=== PATIENT | male | born 1955 | race Caucasian/White ===

== ENCOUNTER 2019-07-01 12:04 | Emergency (ER) | payer SELFPAY ==
[~2019-07-01] VITALS: Ht 167.6 cm; Wt 58.1 kg
--- NOTE | 2019-07-01 12:21 | NUR ---
PT [id number] [id number] FRM CORRECTION C/O RUQ ABDOMINAL PAIN, CHILLS X TODAY. PLACED ON MONITOR AND PULSE OX.
--- NOTE | 2019-07-01 12:22 | NUR ---
C/O RU ABD PAIN.
[2019-07-01] MEDS ORDERED: ONDANSETRON HCL/PF 4 MG/2 ML VIAL IVP ONE (12:30)
[2019-07-01] MEDS ORDERED: IV NS 0.9% 1,000 ML BAG IV ONE (12:30)
[2019-07-01] MEDS ORDERED: ONDANSETRON HCL/PF 4 MG/2 ML VIAL ONE ×2 (12:30→12:34)
[2019-07-01] MEDS ORDERED: ACETAMINOPHEN ES 500 MG TABLET PO ONE (12:30)
[2019-07-01] MEDS ORDERED: ACETAMINOPHEN ES 500 MG TABLET ONE ×2 (12:31→12:34)
[2019-07-01 12:52] LABS: BASOPHILS % (AUTO) 0.7 % (0.0-2.0); LYMPHOCYTES # (AUTO) 0.7 /CMM (0.8-4.8); MONOCYTES # (AUTO) 0.8 /CMM (0.1-1.30); NEUTROPHILS # (AUTO) 4.5 /CMM (1.8-8.9); RED BLOOD CELL COUNT(AUTO) 3.62 MIL/uL (4.5-6.0); WHITE BLOOD COUNT (AUTO) 6.1 K/uL (4.3-11.0)
--- NOTE | 2019-07-01 12:53 | NUR ---
US AT BEDSIDE
[2019-07-01 12:55] LABS: HEMATOCRIT 34 % (39-51); HEMOGLOBIN 11.2 g/dL (13.5-17.5); LYMPHOCYTES % (AUTO) 11.8 % (20.0-44.0); MEAN CORPUSCULAR HGB CONC 33 g/dl (31.0-36.0); MEAN CORPUSCULAR VOLUME 93 fL (80-96); MONOCYTES % (AUTO) 13.6 % (2.0-12.0); NEUTROPHILS % (AUTO) 73.9 % (43.0-81.0); PLATELET COUNT (AUTO) 250 /CMM (150-450)
--- NOTE | 2019-07-01 12:59 | NUR ---
URINE SENT TO LAB
[2019-07-01 13:00] LABS: CALCIUM, SERUM 9.4 mg/dL (8.5-10.1); CARBON DIOXIDE 28 mmol/L (21-32); CHLORIDE 94 mmol/L (98-107); CREATININE 0.8 mg/dL (0.6-1.3); GLUCOSE 113 mg/dL (74-106); POTASSIUM 4.3 mmol/L (3.5-5.1); SODIUM SERUM 131 mmol/L (136-145); UREA NITROGEN, BLOOD 8 mg/dL (7-18)
[2019-07-01 13:02] LABS: APPEARANCE,URINE Clear (CLEAR); BILIRUBIN,URINE Negative (NEGATIVE); BLOOD, URINE Moderate Ery/uL (NEGATIVE); COLOR,URINE Yellow (YELLOW); KETONES,URINE 40 (NEGATIVE); LEUKOCYTE ESTERASE ,URINE Negative (NEGATIVE); NITRITE, URINE Negative (NEGATIVE); PROTEIN,URINE Trace mg/dl (NEGATIVE); UGLUCOSE Negative (NEGATIVE)
[2019-07-01 13:05] LABS: BACTERIA,URINE Rare /HPF (None Seen); SQUAMOUS EPITHELIAL CELL,UR None Seen /HPF (None Seen); WBC,URINE 0-2 /HPF (0-3)
[2019-07-01 13:06] LABS: ALANINE AMINOTRANSFERASE 19 U/L (12-78); ALBUMIN 3.5 g/dL (3.4-5.0); ALKALINE PHOSPHATASE 77 U/L (46-116); ASPARTATE AMINOTRANSFERASE 27 U/L (15-37); BILIRUBIN,DIRECT 0.2 mg/dL (0.0-0.2); BILIRUBIN,TOTAL 0.9 mg/dL (0.2-1.0); LIPASE 78 U/L (73-393); TOTAL PROTEIN, SERUM 8.3 g/dL (6.4-8.2)
[2019-07-01] MEDS ORDERED: IV NS 0.9% 250 ML IV ONE (13:21)
[2019-07-01] MEDS ORDERED: IOHEXOL-300 100 ML VIAL IV ONE (13:21)
--- NOTE | 2019-07-01 13:51 | NUR ---
PT BACK FROM CT
--- NOTE | 2019-07-01 16:41 | NUR ---
IV removed. Catheter intact and site benign. Pressure and 4x4 applied to site. No bleeding noted.
--- NOTE | 2019-07-01 16:45 | NUR ---
Patient discharged to home in stable condition. Written and verbal after care instructions given. Patient verbalizes understanding of instruction. Homeless waiver signed. VSS.
[2019-07-01 16:47] VITALS: BP 124/74
[2019-07-12] MEDS ORDERED: ACET325T53 PO (08:45)
[2019-07-12] MEDS ORDERED: GUAI10SY3 PO (08:45)
[2019-07-12] MEDS ORDERED: MAGN400T26 PO (08:45)
[2019-07-12] MEDS ORDERED: LEVO500T75 PO (08:45)
[2019-07-12] MEDS ORDERED: POTA20TA83 PO (08:45)
[2019-07-12] MEDS ORDERED: ENOX40DI SQ (08:45)
[2019-07-12] MEDS ORDERED: PANT40TA2 PO (08:45)
[2019-07-12] MEDS ORDERED: BENZ-13 PO (08:45)
== END 2019-07-01 16:48 | disposition home or self-care (01) ==
LOC: ER 12:07
DX: B34.9 Viral infection, unspecified (principal); Z59.0 Homelessness
CPT/HCPCS: 36415; 71045; 74177; 76705; 80048; 80076; 81001; 83605; 83690; 84484; 85025; 85730; 87040 ×2; 87804 ×2; 93005; 96374; 99284; J2405; J7030; J7050; Q9967; 81000-TC

== ENCOUNTER 2019-07-02 09:27 | Emergency (ER) | payer SELFPAY ==
[~2019-07-02] VITALS: Ht 167.6 cm; Wt 58.1 kg
--- NOTE | 2019-07-02 09:28 | NUR ---
PT BIBRA FROM THE STREETS TO ED BED 15. PASSERBY CALLED 911, PER REPORT PT ASKED TO BE TAKEN TO THE HOSPITAL. C/O BEING "COLD." PT WAS SEEN IN ED YESTERDAY C/O ABDOMINAL PAIN W/ LOW GRADE FEVER. WAS GIVEN A FULL WORK UP, MEDICALLY CLEARED AND DISCHARGE. PT GOWNED AND PLACED ON MONITOR. AFEBRILE MORTGAGE ORIGINATOR. AWAITING MD CLARKE.
--- NOTE | 2019-07-02 09:34 | NUR ---
DR BERNARD AT BEDSIDE FOR EVAL.
--- NOTE | 2019-07-02 15:00 | NUR ---
Social service consult requested by Dr. Carson for homelessness. Per MD notes, pt. is a 64-year-old male, brought in by paramedics. Patient was found passed out in the streets and was "cold". Positive has a history of alcoholism and intoxication. BAKER met with the pt. bedside. Pt. is alert and oriented x 4. Pt. is Bengali speaking. Renetta from ER admitting assisted with translation. Pt. was seen in the ED yesterday for alcohol intoxication and feeling "cold." Pt. appears dirty and disheveled and has a foul odor. Pt has been homeless for the past 3 years. Prior to being homeless, pt ws living with his family, however pt. stated," they kicked him out." Pt. is an alcoholic and appears to minimize his alcohol consumption. Pt. is familiar with the [facility] and [facility]. Pt. is interested in going to the [facility]. Pt. denies any suicidal and homicidal ideations and visual/auditory hallucinations at this time. Pt. has no source of income and lemus handles or goes to [facility] located at [address] in [place] for food/shower. Pt. states, he goes from hospital to hospital to receive services. SW encouraged pt. to get assistance from caseworkers at [facility] regarding housing services. BAKER encouraged pt. to stop drinking alcohol. BAKER provided pt. with active listening, emotional support and supportive counseling. BAKER provided pt. with the following resources: [facility] [id number] Winter Fdc Program list, [facility] located at [address] [facility] [place], [address] [place] ; [facility] [place], [address] ; [facility] Homeless Resource Directory which includes food stamps, transitional housing, showers and hot meals etc; Mental Health clinics such as [facility] ; [facility] ; Health clinics;[facility] and Alcohol treatment centers such as [facility], ; [facility] Substance Abuse Hotline and [facility] . Homeless Patient waiver form was placed in the chart for pt. to sign upon discharge. TAP card will be provided to the pt. at time of discharge. No other social service needs are requested at this time.
--- NOTE | 2019-07-02 15:30 | NUR ---
PT IS MEDICALLY CLEARED. AMBULATES W/ STEADY GAIT. PT WAS PROVIDED W/ HOMELESS CARE HOME REFFERAL AND TAP CARD FOR TRANPORTATION. VERBALIZES UNDERSTANDING ACI. DISCHARGE IN STABLE CONDITION.
[2019-07-02 15:32] VITALS: BP 108/81
[2019-07-12] MEDS ORDERED: BENZ-13 PO (08:45)
[2019-07-12] MEDS ORDERED: MAGN400T26 PO (08:45)
[2019-07-12] MEDS ORDERED: ACET325T53 PO (08:45)
[2019-07-12] MEDS ORDERED: LEVO500T75 PO (08:45)
[2019-07-12] MEDS ORDERED: PANT40TA2 PO (08:45)
[2019-07-12] MEDS ORDERED: GUAI10SY3 PO (08:45)
[2019-07-12] MEDS ORDERED: POTA20TA83 PO (08:45)
[2019-07-12] MEDS ORDERED: ENOX40DI SQ (08:45)
== END 2019-07-02 15:32 | disposition home or self-care (01) ==
LOC: ER 09:27
DX: F10.229 Alcohol dependence with intoxication, unspecified (principal); Y90.9 Presence of alcohol in blood, level not specified; Z59.0 Homelessness

== ENCOUNTER 2019-07-06 14:31 | Emergency (ER) | payer SELFPAY ==
[~2019-07-06] VITALS: Ht 167.6 cm; Wt 58.1 kg
--- NOTE | 2019-07-06 14:40 | NUR ---
[id number] C/O GENERALIZED WEAKNESS. PATIENT A/OX4, BREATHING EVEN AND UNLABORED, NO SOB NOTED. NEEDS ATTENDED. KEPT COMFORTABLE.
--- NOTE | 2019-07-06 15:59 | NUR ---
Patient given food and tap card. Patient given written and verbal discharge instructions. Patient verbalizes understanding of instructions. Patient is ambulatory with steady gait. Refuses offer of intermediate placement. Patient given list of available shelters in surrounding area.
[2019-07-06 16:01] VITALS: BP 136/70
[2019-07-12] MEDS ORDERED: BENZ-13 PO (08:45)
[2019-07-12] MEDS ORDERED: POTA20TA83 PO (08:45)
[2019-07-12] MEDS ORDERED: LEVO500T75 PO (08:45)
[2019-07-12] MEDS ORDERED: ACET325T53 PO (08:45)
[2019-07-12] MEDS ORDERED: ENOX40DI SQ (08:45)
[2019-07-12] MEDS ORDERED: GUAI10SY3 PO (08:45)
[2019-07-12] MEDS ORDERED: PANT40TA2 PO (08:45)
[2019-07-12] MEDS ORDERED: MAGN400T26 PO (08:45)
== END 2019-07-06 16:01 | disposition home or self-care (01) ==
LOC: ER 14:32
DX: R53.1 Weakness (principal)

== ENCOUNTER 2019-07-07 10:52 | Inpatient (IN) | payer SELFPAY ==
[~2019-07-07] VITALS: Ht 172.7 cm; Wt 65.8 kg
--- NOTE | 2019-07-07 11:01 | NUR ---
patient ODETTE, picked up from one of the private property, weak and can't walk per patient, on room air, breathing evenly and unlabored. connected to the monitor and pulse ox. kept comfortable, will continue to monitor accordingly.
[2019-07-07] MEDS ORDERED: ACETAMINOPHEN 325 MG TABLET PO ONE (11:30)
[2019-07-07] MEDS ORDERED: ACETAMINOPHEN ES 500 MG TABLET ONE (11:43)
[2019-07-07 11:54] LABS: BASOPHILS % (AUTO) 0.1 % (0.0-2.0); EOSINOPHILS % (AUTO) 0.1 % (0.0-6.0); HEMATOCRIT 36 % (39-51); HEMOGLOBIN 11.8 g/dL (13.5-17.5); LYMPHOCYTES # (AUTO) 0.2 /CMM (0.8-4.8); LYMPHOCYTES % (AUTO) 2.8 % (20.0-44.0); MEAN CORPUSCULAR HGB CONC 33 g/dl (31.0-36.0); MEAN CORPUSCULAR VOLUME 93 fL (80-96); MONOCYTES # (AUTO) 0.1 /CMM (0.1-1.30); MONOCYTES % (AUTO) 0.9 % (2.0-12.0); NEUTROPHILS # (AUTO) 5.6 /CMM (1.8-8.9); NEUTROPHILS % (AUTO) 96.1 % (43.0-81.0); PLATELET COUNT (AUTO) 191 /CMM (150-450); RED BLOOD CELL COUNT(AUTO) 3.86 MIL/uL (4.5-6.0); WHITE BLOOD COUNT (AUTO) 5.9 K/uL (4.3-11.0)
[2019-07-07] MEDS ORDERED: IV NS 0.9% 1,000 ML BAG IV ONE (12:00)
[2019-07-07 12:01] LABS: CREATININE 1.4 mg/dL (0.6-1.3)
[2019-07-07 12:02] LABS: POTASSIUM 2.7 mmol/L (3.5-5.1)
[2019-07-07 12:27] LABS: MAGNESIUM 1.3 mg/dL (1.8-2.4)
[2019-07-07] MEDS: POTASSIUM CL. PREMIX PERIPHER. 50 ML IV SCH ×2 (12:30→13:30)
[2019-07-07] MEDS ORDERED: POTASSIUM CHLORIDE 20 MEQ TAB.PRT.SR PO ONE ×2 (12:30→12:38)
[2019-07-07] MEDS ORDERED: POTASSIUM CL. PREMIX PERIPHER. 50 ML ONE ×2 (12:38→13:31)
[2019-07-07 13:49] LABS: APPEARANCE,URINE Slightly Cloudy (CLEAR); BILIRUBIN,URINE SMALL (NEGATIVE); BLOOD, URINE Moderate Ery/uL (NEGATIVE); COLOR,URINE Dark (YELLOW); KETONES,URINE 15 (NEGATIVE); LEUKOCYTE ESTERASE ,URINE Negative (NEGATIVE); NITRITE, URINE Negative (NEGATIVE); PROTEIN,URINE 100 mg/dl (NEGATIVE); UGLUCOSE Negative (NEGATIVE)
[2019-07-07 13:58] LABS: BACTERIA,URINE Rare /HPF (None Seen); SQUAMOUS EPITHELIAL CELL,UR Few /HPF (None Seen); URINE AMORPHOUS URATE Few /HPF (None Seen); WBC,URINE 0-2 /HPF (0-3)
[2019-07-07] MEDS ORDERED: Magnesium 1 GM/2 ML VIAL IV ONE (14:30)
[2019-07-07] MEDS ORDERED: Magnesium 1GM/D5W 100ML PREMIX 100 ML IV ONE (14:35)
--- NOTE | 2019-07-07 14:47 | NUR ---
CALLED FOR BED
--- NOTE | 2019-07-07 16:18 | NUR ---
[facility]
--- NOTE | 2019-07-07 17:45 | NUR ---
wheeled patient via gurney accompanied by RN and emt in no distress, RN at bedside to assume care.
--- NOTE | 2019-07-07 17:46 | NUR ---
LEAD ANDROID DEVELOPERSTONEWORKER NOTES Received Patient via gurney. A/O x 2-3, speech garbled. Patient in stable condition. Breathing even and unlabored on room air with no respiratory distress. Denies pain. No signs and symptoms of pain. Skin assessment pictures taken and placed in chart. 18g PIV on RAC clean, intact, patent and flushing well. Telemonitor in place and patent reading occasional PVCs with HR-93. Safety precautions in place. Bed locked and set to lowest position with side rails x 2 up. All needs rendered at this time. Call light within reach. Will continue to monitor.
[2019-07-07] MEDS ORDERED: Z GUARD REMEDY 2 OZ OINT TP PRN (18:00)
[2019-07-07] MEDS ORDERED: MAG HYDROX/AL HYDROX/SIMETH 30 ML UDC PO PRN (18:00)
[2019-07-07] MEDS ORDERED: ONDANSETRON HCL/PF 4 MG/2 ML VIAL IVP PRN (18:00)
[2019-07-07] MEDS ORDERED: MAGNESIUM HYDROXIDE 30 ML UDC PO PRN (18:00)
--- NOTE | 2019-07-07 19:20 | NUR ---
CHANNELING MACHINE RUNNER CLOSING NOTES Patient awake and watching TV in bed. A/O x 2-3, speech garbled. Patient in stable condition. Breathing even and unlabored on room air with no respiratory distress. Denies pain. No signs and symptoms of pain. 18g PIV on RAC clean, intact, patent and flushing well. Telemonitor in place and patent reading occasional PVCs with HR-93. Safety precautions in place. Bed locked and set to lowest position with side rails x 2 up. All needs rendered at this time. Call light within reach. Will endorse plan of care to oncoming shift.
--- NOTE | 2019-07-07 19:54 | NUR ---
TELE/RN RECEIVED PATIENT IN BED APPEAR SLEEPING, APPEAR COMFORTABLE, NO SIGNS OF DISTRESS NOTED, BREATHING EVEN AND UNLABORED, CALL LIGHT IN REACH. FALL PRECAUTION. WILL MONITOR.
[2019-07-07 20:00] VITALS: BP 93/53
[2019-07-07] MEDS: IV NS 0.9% 1,000 ML IV PRN (20:04)
[2019-07-07] MEDS: ENOXAPARIN SODIUM 40 MG/0.4 ML DISP.SYRIN SQ SCH (22:05)
[2019-07-08] VITALS: BP 96/50
--- NOTE | 2019-07-08 05:02 | NUR ---
MS/RN TEMP 100.0 CALLED [facility], SPOKE TO NETTA MITCHELL NP, NO ORDER WAS RECEIVED. INFORMED ALSO EVELIA CHADWICK THAT THE PATIENT IS COUGHING, PER NETTA, HE WILL REVIEW THE CHART.
[2019-07-08] MEDS: ACETAMINOPHEN 325 MG TABLET PO PRN ×2 (05:08→20:32)
--- NOTE | 2019-07-08 06:09 | NUR ---
MS/RN AWAKE, COMFORTABLE, NO C/O PAIN, NO DISTRESS NOTED, ALL NEEDS ATTENDED AT THIS TIME, WILL CONTINUE TO MONITOR.
[2019-07-08 07:38] LABS: BASOPHILS % (AUTO) 0.3 % (0.0-2.0); EOSINOPHILS % (AUTO) 0.2 % (0.0-6.0); HEMATOCRIT 29 % (39-51); HEMOGLOBIN 9.7 g/dL (13.5-17.5); LYMPHOCYTES # (AUTO) 0.3 /CMM (0.8-4.8); MEAN CORPUSCULAR HGB CONC 33 g/dl (31.0-36.0); MEAN CORPUSCULAR VOLUME 92 fL (80-96); MONOCYTES # (AUTO) 0.3 /CMM (0.1-1.30); MONOCYTES % (AUTO) 4.4 % (2.0-12.0); NEUTROPHILS # (AUTO) 5.6 /CMM (1.8-8.9); NEUTROPHILS % (AUTO) 90.1 % (43.0-81.0); PLATELET COUNT (AUTO) 161 /CMM (150-450); RED BLOOD CELL COUNT(AUTO) 3.18 MIL/uL (4.5-6.0); WHITE BLOOD COUNT (AUTO) 6.2 K/uL (4.3-11.0)
[2019-07-08 08:00] VITALS: BP 94/51
--- NOTE | 2019-07-08 08:00 | NUR ---
PMP OPENING NOTES Received Patient asleep and resting in bed. A/O x 3-4, Kyrgyz speaking. Patient in stable condition. Breathing even and unlabored on room air with no respiratory distress. Denies pain. No signs and symptoms of pain. 18g PIV on RAC clean, intact, patent and flushing well. Telemonitor in place and patent reading occasional PVCs with HR-93. Safety precautions in place. Bed locked and set to lowest position with side rails x 2 up. All needs rendered at this time. Call light within reach. Will continue to monitor.
[2019-07-08 08:09] LABS: CALCIUM, SERUM 7.8 mg/dL (8.5-10.1); CARBON DIOXIDE 28 mmol/L (21-32); CHLORIDE 97 mmol/L (98-107); CREATININE 0.8 mg/dL (0.6-1.3); GLUCOSE 110 mg/dL (74-106); MAGNESIUM 1.5 mg/dL (1.8-2.4); PHOSPHORUS 1.5 mg/dL (2.5-4.9); SODIUM SERUM 135 mmol/L (136-145); UREA NITROGEN, BLOOD 20 mg/dL (7-18)
[2019-07-08 08:15] LABS: CHOLESTEROL 52 mg/dL (<200); LDL 21 mg/dL (0-99); THYROID STIMULATING HORMONE 0.542 uIU/mL (0.358-3.74); TRIGLYCERIDES 119 mg/dL (30-150)
[2019-07-08 08:17] LABS: HDL CHOLESTEROL < 10 mg/dL (40-60); POTASSIUM 2.6 mmol/L (3.5-5.1)
[2019-07-08] MEDS ORDERED: NEUTRA PHOS 1 POWD.PACKET PO ONE ×2 (09:00→11:30)
[2019-07-08] MEDS: POTASSIUM CL. PREMIX PERIPHER. 50 ML IV SCH ×4 (11:20→15:17)
[2019-07-08] MEDS: IV NS 0.9% 1,000 ML IV PRN (11:20)
[2019-07-08] MEDS: POTASSIUM CHLORIDE 20 MEQ TAB.PRT.SR PO SCH (11:21)
[2019-07-08] MEDS: PANTOPRAZOLE 40 MG TABLET.DR PO SCH (11:21)
--- NOTE | 2019-07-08 14:58 | NUR ---
Social service consult requested by EVELIA Rodriguez for homelessness. Upon chart review and ED notes, pt. is a 64 year old Malagasy speaking homeless male with no significant past history who presented by rescue ambulance from the streets for generalized weakness x 1 day. Patient stated he is unable to walk. He states that every time he walks, he falls. He states he fell forward onto his knees and subsequently fell to the right side. CYCLE TOURING GUIDE met with the pt bedside with community health advocate Candy to assist with Malagasy translation. Pt. is alert and oriented x 2 and is a poor historian. Pt. is unable to provide meaningful information at this time and appears to be weak. CYCLE TOURING GUIDE to follow up with pt. once he is able to provide meaningful information.
[2019-07-08] MEDS: LEVOFLOXACIN 500 MG /D5W 100ML 500 MG in PREMIX 1 EA IV SCH (15:17)
[2019-07-08 16:00] VITALS: BP 98/63
--- NOTE | 2019-07-08 18:10 | NUR ---
MS RN NOTES Notified Jennifer CABLE CUTTER AND SWAGER of Charge Nurse recommendation for breathing treatments. Per CABLE CUTTER AND SWAGER, may order "breathing tx prn q4hrs while awake". Order noted and carried out. Patient in stable condition. Will continue to monitor.
--- NOTE | 2019-07-08 19:05 | NUR ---
MS RN CLOSING NOTES Patient asleep and resting in bed. A/O x 3-4, Turkish speaking. Patient in stable condition. Breathing even and unlabored on room air with no respiratory distress. Noted Patient coughing. Will intervene as ordered. Denies pain. No signs and symptoms of pain. 18g PIV on RAC clean, intact, patent and flushing well with NS infusing at 75ml/hr. Bed locked and set to lowest position with side rails x 2 up. All needs rendered at this time. Call light within reach. Will endorse plan of care to oncoming shift.
--- NOTE | 2019-07-08 19:50 | NUR ---
MS RN OPENING NOTES PATIENT RESTING IN BED COMFORTABLY; A/O X 3; NO S/S OF ACUTE RESPIRATORY DISTRESS NOTED; PATIENT HAS BLE DISCOLORATION AND R FOOT IS SCALY/DRY; RAC #18 RUNNING NS @ 75ML/HR; FLUSHING WELL; NO S/S OF REDNESS OR INFILTRATION; BED LOCKED IN LOW POSITION; SAFETY PRECAUTIONS IN PLACE; BILATERAL UPPER SIDE RAILS UP X2; CALL LIGHT WITHIN EASY REACH; WILL CONTINUE TO MONITOR.
[2019-07-08 20:00] VITALS: BP 120/59
[2019-07-08] MEDS ORDERED: IPRATROPIUM NEB FS 0.5 MG/2.5 ML AMPUL.NEB NEB PRN (20:00)
[2019-07-08] MEDS ORDERED: ALBUTEROL FS 2.5 MG/0.5 ML VIAL.NEB NEB PRN (20:00)
[2019-07-08] MEDS: MAGNESIUM OXIDE 400 MG TABLET PO SCH (21:42)
[2019-07-08] MEDS: ENOXAPARIN SODIUM 40 MG/0.4 ML DISP.SYRIN SQ SCH (21:43)
[2019-07-09] MEDS: IV NS 0.9% 1,000 ML IV PRN (05:16)
--- NOTE | 2019-07-09 06:45 | NUR ---
MS RN CLOSING NOTES PATIENT RESTING COMFORTABLY IN BED; A/O X2, BREATHING EVEN AND UNLABORED; PATIENT HAS COUGH BUT NO SPUTUM NOTED; NO S/S OF ACUTE RESPIRATORY DISTRESS NOTED; BLE DISCOLORATION AND R FOOT SCALY/DRY; RAC #18 RUNNING NS @ 75ML/HR, NO S/S OF INFILTRATION OR REDNESS NOTED; IV SITE INTACT AND PATENT; FLUSHING WELL; BED LOCKED IN LOW POSITION, SAFETY PRECAUTIONS IN PLACE; SIDE RAILS UP X2; CALL LIGHT WITHIN EASY REACH; WILL ENDORSE CONTINUITY OF CARE TO ONCOMING NURSE.
[2019-07-09 07:14] LABS: CALCIUM, SERUM 7.6 mg/dL (8.5-10.1); CREATININE 0.7 mg/dL (0.6-1.3); POTASSIUM 2.9 mmol/L (3.5-5.1)
[2019-07-09 07:21] LABS: HEMATOCRIT 30 % (39-51); HEMOGLOBIN 9.9 g/dL (13.5-17.5); LYMPHOCYTES # (AUTO) 0.7 /CMM (0.8-4.8); LYMPHOCYTES % (AUTO) 10.2 % (20.0-44.0); MEAN CORPUSCULAR HGB CONC 33 g/dl (31.0-36.0); MEAN CORPUSCULAR VOLUME 93 fL (80-96); MONOCYTES # (AUTO) 0.5 /CMM (0.1-1.30); MONOCYTES % (AUTO) 6.9 % (2.0-12.0); NEUTROPHILS # (AUTO) 5.8 /CMM (1.8-8.9); NEUTROPHILS % (AUTO) 82.9 % (43.0-81.0); PLATELET COUNT (AUTO) 174 /CMM (150-450); RED BLOOD CELL COUNT(AUTO) 3.26 MIL/uL (4.5-6.0)
[2019-07-09 08:10] LABS: MAGNESIUM 1.2 mg/dL (1.8-2.4)
[2019-07-09 08:44] VITALS: BP 109/69
[2019-07-09] MEDS: POTASSIUM CHLORIDE 20 MEQ TAB.PRT.SR PO SCH (09:09)
[2019-07-09] MEDS: LEVOFLOXACIN 500 MG /D5W 100ML 500 MG in PREMIX 1 EA IV SCH (09:10)
[2019-07-09] MEDS: PANTOPRAZOLE 40 MG TABLET.DR PO SCH (09:11)
--- NOTE | 2019-07-09 10:20 | NUR ---
GPS/R Roxanne Rodriguez NP made aware of pt's critical values. she will put the orders fro mag. replacements
[2019-07-09] MEDS: Magnesium 1GM/D5W 100ML PREMIX 100 ML IV SCH ×4 (11:55→15:56)
[2019-07-09] MEDS: POTASSIUM CL. PREMIX PERIPHER. 50 ML IV SCH ×4 (11:58→18:52)
[2019-07-09 15:56] VITALS: BP 96/56
[2019-07-09 17:34] LABS: MAGNESIUM 1.8 mg/dL (1.8-2.4)
--- NOTE | 2019-07-09 19:35 | NUR ---
MS RN OPENING NOTES PATIENT RECEIVED PATIENT RESTING IN BED COMFORTABLY; A/O X2; BREATHING EVEN AND UNLABORED; PATIENT COUGHING BUT NO SPUTUM NOTED; PATIENT ON 2L NC AND TOLERATING WELL; NO S/S OF ACUTE RESPIRATORY DISTRESS NOTED; BLE DISCOLORATION NOTED; R FOOT SCALY/DRY; L FA #20 INTACT AND PATENT RUNNING NS @ 75ML/HR; FLUSHING WELL; NO S/S OF INFILTRATION; BED LOCKED IN LOW POSITION, SIDE RAILS UP X2; SAFETY PRECAUTIONS IN PLACE; CALL LIGHT WITHIN EASY REACH, WILL CONTINUE TO MONITOR.
--- NOTE | 2019-07-09 19:45 | NUR ---
RN NOTES LAB CALLED AND REPORTED PT'S POTASSIUM LEVEL IS 2.7- INFORMED LAB THAT POTASSIUM IV STILL RUNNING AND WE'LL PUT ANOTHER ORDER WE FINISHED THE POTASSIUM
[2019-07-09 20:00] VITALS: BP 97/54
[2019-07-09 20:41] LABS: POTASSIUM 2.7 mmol/L (3.5-5.1)
[2019-07-09] MEDS: MAGNESIUM OXIDE 400 MG TABLET PO SCH (21:15)
[2019-07-09] MEDS: ENOXAPARIN SODIUM 40 MG/0.4 ML DISP.SYRIN SQ SCH (21:15)
--- NOTE | 2019-07-09 23:35 | NUR ---
MS RN NOTES PATIENT POTASSIUM REDRAW: 3.0; MD NOTIFIED; SPOKE WITH DR. MITCHELL REGARDING LABS; 10 MEQ/50ML X2 ORDERED; AWAITING ROUTINE AM LABS FOR RESULTS; WILL CONTINUE TO MONITOR.
[2019-07-10] MEDS ORDERED: POTASSIUM CHLORIDE 10 MEQ/50 ML PREMIXED IVPB FOR PERIPHERAL LINE IV ONE
[2019-07-10] MEDS: IV NS 0.9% 1,000 ML IV PRN ×2 (00:26→23:37)
--- NOTE | 2019-07-10 06:46 | NUR ---
MS RN CLOSING NOTES PATIENT IN BED RESTING COMFORTABLY; PATIENT ON 2L NC; TOLERATING WELL, BREATHING EVEN AND UNLABORED; NO S/S OF ACUTE RESPIRATORY DISTRESS NOTED; BLE DISCOLORATION AND R FOOT SCALY/DRY; RA #20 SL, INTACT AND PATENT; FLUSHING WELL; L FA #20 RUNNING NS @ 100 ML/HR; FLUSHING WELL, NO S/S OF REDNESS OR INFILTRATION; BED LOCKED IN LOW POSITION; SAFETY PRECAUTIONS IN PLACE, SIDE RAILS X2; CALL LIGHT WITHIN EASY REACH; ALL NEEDS RENDERED; WILL ENDORSE CONTINUITY OF CARE TO ONCOMING NURSE.
[2019-07-10 07:01] LABS: BASOPHILS % (AUTO) 0.1 % (0.0-2.0); EOSINOPHILS % (AUTO) 0.3 % (0.0-6.0); HEMATOCRIT 28 % (39-51); HEMOGLOBIN 9.3 g/dL (13.5-17.5); LYMPHOCYTES # (AUTO) 0.8 /CMM (0.8-4.8); LYMPHOCYTES % (AUTO) 10.3 % (20.0-44.0); MEAN CORPUSCULAR HGB CONC 33 g/dl (31.0-36.0); MEAN CORPUSCULAR VOLUME 91 fL (80-96); MONOCYTES # (AUTO) 0.4 /CMM (0.1-1.30); MONOCYTES % (AUTO) 5.6 % (2.0-12.0); NEUTROPHILS # (AUTO) 6.3 /CMM (1.8-8.9); NEUTROPHILS % (AUTO) 83.7 % (43.0-81.0); PLATELET COUNT (AUTO) 176 /CMM (150-450); RED BLOOD CELL COUNT(AUTO) 3.04 MIL/uL (4.5-6.0); WHITE BLOOD COUNT (AUTO) 7.5 K/uL (4.3-11.0)
[2019-07-10 07:15] LABS: CALCIUM, SERUM 7.1 mg/dL (8.5-10.1); CREATININE 0.6 mg/dL (0.6-1.3); MAGNESIUM 1.3 mg/dL (1.8-2.4); PHOSPHORUS 2.5 mg/dL (2.5-4.9); POTASSIUM 2.9 mmol/L (3.5-5.1)
--- NOTE | 2019-07-10 08:00 | NUR ---
MS RN AM NOTES PATIENT IN BED RESTING COMFORTABLY; PATIENT ON 2L NC; TOLERATING WELL, BREATHING EVEN AND UNLABORED; NO S/S OF ACUTE RESPIRATORY DISTRESS NOTED; BLE DISCOLORATION AND R FOOT SCALY/DRY; RA #20 SL, INTACT AND PATENT; FLUSHING WELL; L FA #20 RUNNING NS @ 100 ML/HR; FLUSHING WELL, NO S/S OF REDNESS OR INFILTRATION; BED LOCKED IN LOW POSITION; SAFETY PRECAUTIONS IN PLACE, SIDE RAILS X2; CALL LIGHT WITHIN EASY REACH;
[2019-07-10 09:59] VITALS: BP 114/62
[2019-07-10] MEDS: PANTOPRAZOLE 40 MG TABLET.DR PO SCH (10:12)
[2019-07-10] MEDS: POTASSIUM CHLORIDE 20 MEQ TAB.PRT.SR PO SCH (10:12)
[2019-07-10] MEDS: LEVOFLOXACIN 500 MG /D5W 100ML 500 MG in PREMIX 1 EA IV SCH (10:13)
[2019-07-10] MEDS: BENZONATATE 100 MG CAPSULE PO PRN (10:50)
[2019-07-10] MEDS ORDERED: GUAIFENESIN/CODEINE 10 ML UDC PO PRN (11:00)
[2019-07-10 16:25] VITALS: BP 107/57
--- NOTE | 2019-07-10 19:30 | NUR ---
MS RN OPENING NOTES PATIENT ASLEEP UPON ARRIVAL. A/O X2, PORTUGUESE SPEAKING. ON 2L NC. NO S/S OF ACUTE RESPIRATORY DISTRESS AND NO COMPLAINTS OF PAIN AT THIS TIME. IV PRESENT ON LEFT FOREARM, SIZE 20 WITH NS RUNNING AT 100 CC/HR. BED LOCKED, ALARM ON, SIDE RAILS X2, CALL LIGHT WITHIN REACH. WILL CONTINUE TO MONITOR.
--- NOTE | 2019-07-10 19:30 | NUR ---
RESTING IN BED DENYING ANY PAIN OR DISTRESS.WITH OCCASIONAL DRY COUGH.ENCOURAGED INCREASE FLUIDS.CALL LIGHT PLACED WITHIN REACH.
[2019-07-10 20:00] VITALS: BP 102/58
[2019-07-10 20:29] VITALS: BP 132/86
[2019-07-10] MEDS: MAGNESIUM OXIDE 400 MG TABLET PO SCH (21:17)
[2019-07-10] MEDS: ENOXAPARIN SODIUM 40 MG/0.4 ML DISP.SYRIN SQ SCH (21:18)
--- NOTE | 2019-07-11 06:59 | NUR ---
MS RN CLOSING NOTES PATIENT SLEEPING IN BED. A/OX2. ON 2L NC. NO S/S OF ACUTE RESPIRATORY DISTRESS AND NO COMPLAINTS OF PAIN AT THIS TIME. IV PRESENT ON LEFT FOREARM, SIZE 20, WITH NS RUNNING AT 100CC/HR. IV ON RIGHT FOREARM, SIZE 20, HEP LOCKED. BED LOCKED, ALARM ON, SIDE RAILS X2, CALL LIGHT WITHIN REACH. WILL ENDORSE TO DAY SHIFT NURSE TO FOLLOW PLAN OF CARE.
[2019-07-11 08:00] VITALS: BP 99/59
[2019-07-11 08:53] LABS: BASOPHILS % (AUTO) 0.1 % (0.0-2.0); EOSINOPHILS % (AUTO) 0.2 % (0.0-6.0); HEMATOCRIT 26 % (39-51); HEMOGLOBIN 8.9 g/dL (13.5-17.5); LYMPHOCYTES # (AUTO) 1.2 /CMM (0.8-4.8); LYMPHOCYTES % (AUTO) 14.9 % (20.0-44.0); MEAN CORPUSCULAR HGB CONC 34 g/dl (31.0-36.0); MEAN CORPUSCULAR VOLUME 92 fL (80-96); MONOCYTES # (AUTO) 0.7 /CMM (0.1-1.30); MONOCYTES % (AUTO) 8.3 % (2.0-12.0); NEUTROPHILS # (AUTO) 6.3 /CMM (1.8-8.9); NEUTROPHILS % (AUTO) 76.5 % (43.0-81.0); PLATELET COUNT (AUTO) 215 /CMM (150-450); RED BLOOD CELL COUNT(AUTO) 2.88 MIL/uL (4.5-6.0); WHITE BLOOD COUNT (AUTO) 8.2 K/uL (4.3-11.0)
[2019-07-11] MEDS: POTASSIUM CHLORIDE 20 MEQ TAB.PRT.SR PO SCH (09:07)
[2019-07-11] MEDS: PANTOPRAZOLE 40 MG TABLET.DR PO SCH (09:07)
[2019-07-11 09:18] LABS: CALCIUM, SERUM 7.1 mg/dL (8.5-10.1); CREATININE 0.6 mg/dL (0.6-1.3); PHOSPHORUS 2.6 mg/dL (2.5-4.9); POTASSIUM 3.2 mmol/L (3.5-5.1)
--- NOTE | 2019-07-11 09:20 | NUR ---
NOTIFIED MARÍA OF PT'S LOW K+ 3.2 MG 1.0 WITH NEW ORDERS CARRIED OUT
[2019-07-11] MEDS: BENZONATATE 100 MG CAPSULE PO PRN (09:32)
[2019-07-11] MEDS ORDERED: POTASSIUM CHLORIDE 20 MEQ TAB.PRT.SR PO ONE (10:00)
[2019-07-11] MEDS ORDERED: LEVOFLOXACIN (500MG) 500 MG TABLET PO SCH (10:00)
[2019-07-11] MEDS ORDERED: GUAIFENESIN/CODEINE 10 ML UDC PO PRN (10:00)
[2019-07-11] MEDS: Magnesium 1GM/D5W 100ML PREMIX 100 ML IV SCH ×4 (10:03→14:23)
--- NOTE | 2019-07-11 10:04 | NUR ---
IN ADDITION OF THE PT'S ROUTINE KDUR 80 MEQ THE DOCTOR ORDERED KDUR 40 MEQ PO FOR PT'S LOW K LEVEL
[2019-07-11] MEDS: IV NS 0.9% 1,000 ML IV PRN (10:08)
[2019-07-11 16:00] VITALS: BP 97/50
[2019-07-11 20:00] VITALS: BP 111/55
[2019-07-11] MEDS: ENOXAPARIN SODIUM 40 MG/0.4 ML DISP.SYRIN SQ SCH (21:36)
[2019-07-11] MEDS: MAGNESIUM OXIDE 400 MG TABLET PO SCH (21:36)
[2019-07-11] MEDS ORDERED: MAGNESIUM OXIDE 400 MG TABLET PO ONE (22:00)
[2019-07-12] MEDS: IV NS 0.9% 1,000 ML IV PRN ×2 (00:59→12:39)
--- NOTE | 2019-07-12 06:34 | NUR ---
MS RN NOTES AWAKE & RESPONSIVE. NOT IN ANY DISTRESS. NO SOB NOTED. DENIES ANY PAIN OR DISCOMFORT AT THIS TIME. WITH IVF INFUSING WELL. AM CARE DONE. MONITORED ACCORDINGLY. CALL LIGHT WITHIN REACH. BED IN LOWEST POSITION. SR UP X 2 WITH BED ALARM ON FOR SAFETY. WILL ENDORSE TO NEXT SHIFT.
--- NOTE | 2019-07-12 07:50 | NUR ---
MS/RN OPENING NOTES RECEIVED PATIENT AWAKE & RESPONSIVE LYING IN BED COMFORTABLY. NOT IN ANY DISTRESS. NO SOB NOTED. DENIES ANY PAIN OR DISCOMFORT AT THIS TIME. WITH IVF INFUSING WELL. MONITORED ACCORDINGLY. CALL LIGHT WITHIN REACH. BED IN LOWEST POSITION. SR UP X 2 WITH BED ALARM ON FOR SAFETY. WILL CONTINUE TO MONITOR.
[2019-07-12 08:00] VITALS: BP 97/50
[2019-07-12 08:14] LABS: BASOPHILS % (AUTO) 0.1 % (0.0-2.0); EOSINOPHILS % (AUTO) 0.7 % (0.0-6.0); HEMATOCRIT 25 % (39-51); HEMOGLOBIN 8.5 g/dL (13.5-17.5); LYMPHOCYTES % (AUTO) 13.6 % (20.0-44.0); MEAN CORPUSCULAR HGB CONC 34 g/dl (31.0-36.0); MEAN CORPUSCULAR VOLUME 92 fL (80-96); MONOCYTES # (AUTO) 0.6 /CMM (0.1-1.30); MONOCYTES % (AUTO) 8.3 % (2.0-12.0); NEUTROPHILS # (AUTO) 5.8 /CMM (1.8-8.9); NEUTROPHILS % (AUTO) 77.3 % (43.0-81.0); PLATELET COUNT (AUTO) 237 /CMM (150-450); WHITE BLOOD COUNT (AUTO) 7.5 K/uL (4.3-11.0)
[2019-07-12 08:30] LABS: CALCIUM, SERUM 7.3 mg/dL (8.5-10.1); CREATININE 0.6 mg/dL (0.6-1.3); MAGNESIUM 1.3 mg/dL (1.8-2.4); PHOSPHORUS 2.6 mg/dL (2.5-4.9); POTASSIUM 4.1 mmol/L (3.5-5.1)
[2019-07-12] MEDS: PANTOPRAZOLE 40 MG TABLET.DR PO SCH (08:43)
[2019-07-12] MEDS: POTASSIUM CHLORIDE 20 MEQ TAB.PRT.SR PO SCH (08:43)
[2019-07-12] MEDS ORDERED: LEVO500T75 PO (08:45)
[2019-07-12] MEDS ORDERED: PANT40TA2 PO (08:45)
[2019-07-12] MEDS ORDERED: ENOX40DI SQ (08:45)
[2019-07-12] MEDS ORDERED: GUAI10SY3 PO (08:45)
[2019-07-12] MEDS ORDERED: BENZ-13 PO (08:45)
[2019-07-12] MEDS ORDERED: ACET325T53 PO (08:45)
[2019-07-12] MEDS ORDERED: MAGN400T26 PO (08:45)
[2019-07-12] MEDS ORDERED: POTA20TA83 PO (08:45)
[2019-07-12] MEDS ORDERED: LEVOFLOXACIN 500 MG /D5W 100ML 500 MG in PREMIX 1 EA IV SCH (09:00)
[2019-07-12] MEDS ORDERED: MAGNESIUM OXIDE 400 MG TABLET PO ONE (11:30)
--- NOTE | 2019-07-12 18:46 | NUR ---
MS/RN CLOSING NOTES PATIENT IS ALERT AND ORIENTED X3. PATIENT DENIES PAIN AT THIS TIME. NO RESPIRATORY DISTRESS NOTED AT THIS TIME. SEEN AND EXAMINED BY MD WITH ORDERS NOTED AND CARRIED OUT. ALL DUE PRESCRIBED MEDS WAS GIVEN. NS 1L AT 100ML/HR INFUSING WELL. IV LINE AT THE LEFT UPPER ARM 22G PATENT AND INTACT. KEPT PATIENT CLEAN AND DRY THE WHOLE TIME. BED IN LOWEST POSITION AND LOCKED. SIDERAILS UP X 2. CALL LIGHTS WITHIN REACH. WILL ENDORSED TO CONVEYOR BELT REPAIRER FOR CONTINUITY OF CARE.
--- NOTE | 2019-07-12 20:50 | NUR ---
MS BOND TRADER NOTES PATIENT DISCHARGED ACCOMPANIED BY TRANSPORTATION STAFF TO [facility] MEDICALLY STABLE. ALL BELONGINGS TOGETHER WITH PATIENT. DISCHARGE PACKET GIVEN TO PATIENT. EDUCATED PATIENT. IV REMOVED. MEDICAL BAND REMOVED.
== END 2019-07-12 20:25 | disposition home or self-care (01) | DRG 682 ==
LOC: ER 10:53 → TELE 16:56 → MED 07-08 10:09
PROVIDERS: ADMIT Registered Nurse; ATTEND Registered Nurse
DX: N17.0 Acute kidney failure with tubular necrosis (principal); J15.9 Unspecified bacterial pneumonia; E86.0 Dehydration; E87.6 Hypokalemia; E83.42 Hypomagnesemia; M75.101 Unspecified rotator cuff tear or rupture of right shoulder, not specified as traumatic; R62.7 Adult failure to thrive; E83.39 Other disorders of phosphorus metabolism; Z59.0 Homelessness; R53.1 Weakness; Z91.81 History of falling; W19.XXXA Unspecified fall, initial encounter; Y93.9 Activity, unspecified; Y92.89 Other specified places as the place of occurrence of the external cause; Z68.22 Body mass index [BMI] 22.0-22.9, adult
CPT/HCPCS: 36415; 71045-TC; 73030-TC; 73502; 80048-TC; 80061-TC; 81000-TC; 82550-TC; 83735-TC; 84100-TC; 84132-TC; 84443-TC; 85025-TC; 87081-TC; 97110-TC; 97116-TC; 97530-TC; A4216; A6253; G0378; J1650; J1956; J3475; J3480; J7030